=== PATIENT | female | born 1995 | race African-American/Black ===

== ENCOUNTER 2018-08-10 14:43 | Emergency (ER) | payer MEDICAID, OTHER ==
[~2018-08-10] VITALS: Ht 165.1 cm; Wt 89.3 kg
[2018-08-10] MEDS ORDERED: IBUPROFEN 600MG TABLET PO ONE (16:30)
[2018-08-10] MEDS ORDERED: TRAMADOL 50MG TABLET PO ONE (18:15)
[2018-08-10 18:26] VITALS: BP 128/93
== END 2018-08-10 18:31 | disposition home or self-care (01) ==
LOC: ER 15:09
DX: M54.5 Low back pain (principal); M25.562 Pain in left knee; V73.6XXA Passenger on bus injured in collision with car, pick-up truck or van in traffic accident, initial encounter; Y93.89 Activity, other specified; Y92.488 Other paved roadways as the place of occurrence of the external cause
CPT/HCPCS: 72070; 72100; 72125; 73560; 81025; 99284; L0172